=== PATIENT | female | born 1970 | race Caucasian/White ===

== ENCOUNTER 2019-06-13 10:02 | Inpatient (IN) ==
[2019-06-13] MEDS ORDERED: *HR* Propofol 200 MG/20 ML VIAL IVP ONE (10:24)
[2019-06-13] MEDS ORDERED: *HR* Midazolam HCl 2 MG/2 ML VIAL ONE ×2 (10:24→10:54)
[2019-06-13] MEDS ORDERED: *HR* FentaNYL (PF) 100 MCG/2 ML VIAL ONE (10:24)
[2019-06-13] MEDS ORDERED: Ondansetron 4 MG/2 ML VIAL ONE ×2 (10:24→17:10)
[2019-06-13] MEDS ORDERED: Dexamethasone 4 MG/ML VIAL ONE (10:24)
[2019-06-13] MEDS ORDERED: *HR* Rocuronium Bromide 50 MG/5 ML VIAL ONE ×2 (10:24→12:39)
[2019-06-13] MEDS ORDERED: Lidocaine -MPF 2% 2 ML VIAL ONE (10:24)
[2019-06-13] MEDS ORDERED: Lidocaine -MPF 4% 5 ML AMPUL ONE (10:25)
[2019-06-13] MEDS ORDERED: cefOXitin 3,000 MG in 0.9 % Sodium Chloride 100 ML IVPB ONE (10:31)
[2019-06-13] MEDS ORDERED: Famotidine 20 MG/2 ML VIAL IVP ONE (10:31)
[2019-06-13] MEDS ORDERED: Albuterol 2.5 MG/3 ML NEBULIZER IH PRN ×2 (10:31→16:00)
[2019-06-13] MEDS ORDERED: Gabapentin 300 MG CAPSULE PO ONE (10:32)
[2019-06-13] MEDS ORDERED: Acetaminophen IV 1,000 MG/100 ML INFUS..BTL IVPB ONE (10:32)
[2019-06-13] MEDS ORDERED: Ringers Solution, Lactated 1,000 ML IVC SCH ×2 (10:45)
[2019-06-13] MEDS ORDERED: Bupivacaine-MPF 0.25% 10 ML VIAL ONE (10:53)
[2019-06-13] MEDS ORDERED: Morphine Sulfate/PF 5mg/10mL Vial ONE (10:53)
[2019-06-13] MEDS ORDERED: Ondansetron 4 MG/2 ML VIAL IVP PRN ×2 (11:58→14:59)
[2019-06-13] MEDS ORDERED: *HR* HYDROmorphone (PF) 1 MG/ML SYRINGE IVP PRN ×2 (11:58→15:16)
[2019-06-13] MEDS ORDERED: Ibuprofen 200 MG TABLET PO PRN (11:58)
[2019-06-13] MEDS ORDERED: Acetaminophen IV 1,000 MG/100 ML INFUS..BTL IVPB SCH (12:00)
[2019-06-13] MEDS ORDERED: Ketorolac 30 MG/ML VIAL IVP ONE (13:42)
[2019-06-13] MEDS ORDERED: Naloxone 0.4 MG/ML INJ IVP PRN (14:59)
[2019-06-13] MEDS ORDERED: Sennosides 8.6 MG TABLET PO PRN (14:59)
[2019-06-13] MEDS: Ondansetron 4 MG/2 ML VIAL IVP PRN ×2 (17:15→23:14)
[2019-06-13] MEDS: Acetaminophen IV 1,000 MG/100 ML INFUS..BTL IVPB SCH ×2 (17:32→23:54)
[2019-06-13] MEDS: Ringers Solution, Lactated 1,000 ML IVC SCH ×2 (19:30→23:53)
[2019-06-13] MEDS ORDERED: Nicotine 21 MG PATCH.TD24 TD SCH (21:15)
[2019-06-14] MEDS: Acetaminophen IV 1,000 MG/100 ML INFUS..BTL IVPB SCH ×3 (01:02→18:58)
[2019-06-14 05:58] LABS: Basophils % 0.1 %; Hematocrit 37.4 % (35.3-44.9); Hemoglobin 12.4 g/dL (11.5-15.4); Immature Granulocytes % 0.4 % (0-4); Lymphocytes # 1.2 K/mcL (0.6-4.6); Lymphocytes % 7.1 %; Mean Corpuscular HGB Conc 33.2 g/dL (31.6-35.5); Mean Corpuscular Hemoglobin 30.6 pg (28.0-33.3); Mean Corpuscular Volume 92.3 fL (83.0-100.0); Mean Platelet Volume 9.6 fL (9.4-12.4); Monocytes # 1.7 K/mcL (0.0-1.3); Monocytes % 9.7 %; Neutrophils # 14.3 K/mcL (1.6-8.9); Platelet Count 317 K/mcL (140-400); Red Blood Count 4.05 M/mcL (3.82-4.97); Red Cell Distribution Width 13.3 % (11.5-14.5); Segmented Neutrophils % 82.7 %; White Blood Count 17.3 K/mcL (4.3-11.1)
[2019-06-14] MEDS ORDERED: Famotidine 20 MG TABLET PO PRN (08:20)
[2019-06-14] MEDS: Ringers Solution, Lactated 1,000 ML IVC SCH (09:02)
[2019-06-14] MEDS: *HR* OxyCODONE Immed Rel 5 MG TABLET PO PRN ×3 (12:05→20:22)
[2019-06-14] MEDS: Nicotine 21 MG PATCH.TD24 TD SCH (12:06)
[2019-06-14] MEDS ORDERED: Acetaminophen IV 1,000 MG/100 ML INFUS..BTL IVPB PRN (19:45)
[2019-06-14] MEDS: Ibuprofen 400 MG TABLET PO PRN (21:24)
[2019-06-15] MEDS: *HR* OxyCODONE Immed Rel 5 MG TABLET PO PRN ×2 (00:34→04:59)
[2019-06-15] MEDS ORDERED: Bisacodyl 10 MG RECTAL SUPPOSITORY RC ONE (08:32)
[2019-06-15] MEDS: Ibuprofen 400 MG TABLET PO PRN (09:00)
[2019-06-15] MEDS: Nicotine 21 MG PATCH.TD24 TD SCH (09:03)
[2019-06-15 09:46] VITALS: BP 133/78
== END 2019-06-15 10:25 | disposition home or self-care (01) | DRG 519 ==
LOC: SAMDAY 10:02 → 1NENUPED 15:00
PROVIDERS: ADMIT Student in an Organized Health Care Education/Training Program; ATTEND Student in an Organized Health Care Education/Training Program